=== PATIENT | female | born 1990 | race Caucasian/White ===

== ENCOUNTER 2020-05-23 11:42 | Emergency (ER) | payer OTHER, SELFPAY ==
--- NOTE | ~2020-05-23 | XR_ITS ---
EXAMINATION: XR foot LT min 3V DATE: 05/23/2020 12:00 INDICATION: Left foot injury and pain. TECHNIQUE: 4 views of left foot were obtained. COMPARISON: Left ankle radiographs 02/23/2010 FINDINGS: Bone alignment is normal. No fracture. There is mild osteoarthritis of first metatarsophala ngeal joint. There is an enthesophyte at plantar aspect of calcaneal tuberosity. IMPRESSION: 1. Mild osteoarthritis of first metatarsophalangeal joint. Reviewed, dictated and finalized at location A.
--- NOTE | 2020-05-23 11:50 | ED.LOWEXIN ---
HPI - Extremity Injury (Lower) General Chief Complaint: Extremity Injury, Lower Stated Complaint: lt foot injury Time Seen by Provider: 05/23/20 12:01 Source: patient and RN notes reviewed Mode of arrival: ambulatory Limitations: no limitations History of Present Illness HPI Narrative: 30-year-old female who presents to [facility] care with complaints of injury to her left lateral foot and ankle which occurred on May 15 when she fell down the steps. Patient states swelling and bruising have decreased to her left lateral foot and ankle but continues to have pain to the area.Patient is able to bear weight to her foot, denies any tingling or numbness to her foot with strong left pedal and post tibial pulses.Patient has minimal swelling to area lateral ankle area. MD complaint: foot injury (left) Onset (ago): day(s) () Injury: Left: ankle and foot Type of Injury: eversion Place: home Severity: moderate Context: fall Associated symptoms: swelling and able to partially bear weight Other symptoms: none Treatments prior to arrival: cold therapy and NSAIDS Related Data Home Medications Medication Instructions Recorded Confirmed drospirenone-ethinyl estradiol 1 tablet DAILY 05/23/20 05/23/20 sertraline 100 mg DAILY 05/23/20 05/23/20 Allergies Allergy/AdvReac Type Severity Reaction Status Date / Time No Known Allergies Allergy Mild Verified 03/25/13 21:29 Review of Systems Review of Systems: Narrative: CONSTITUTIONAL: Denies fever, chills, or sweats. EYES: Denies visual changes, redness, or discharge. ENT: Denies rhinorrhea, congestion, sore throat, or otalgia. CARDIOVASCULAR: Denies chest pain, palpitations, or edema. RESPIRATORY: Denies cough or dyspnea. GASTROINTESTINAL: Denies abdominal pain, nausea, vomiting, or diarrhea. GENITOURINARY: Denies dysuria or hematuria. SKIN: Denies rash or itching. MUSCULOSKELETAL: Denies back pain,positive for pain to her left lateral foot and ankle,or myalgia. NEUROLOGIC: Denies headache, numbness, or weakness. PSYCHIATRIC: positive history of anxiety or depression. All systems reviewed & are unremarkable except as noted in HPI and below PMFSH Past Medical History Medical History (Updated 05/24/20 @ 19:00 by Tiffany Kang NP) Depression Social History Social History (Updated 05/24/20 @ 18:56 by Tiffany Kang NP) Smoking status: Former smoker Tobacco type: cigarettes Smoking end date: 04/13/13 Living arrangements: with family Gender identity (if verbalized by the patient): Female Comments At time of signature, agree with nursing past medical, surgical, social history. There is no relevant family history pertinent to the presenting complaint Exam Narrative: Exam Narrative: GENERAL: Well-appearing, well-nourished, and in no acute distress. HEAD: Normocephalic, atraumatic. EYES: PERRLA and EOMI. ENT: Nares clear, no rhinorrhea or epistaxis. Mucous membranes moist. NECK: Supple. CHEST: Clear to auscultation. No respiratory distress. HEART: Regular rate and rhythm. No murmur heard. Normal peripheral pulses. ABDOMEN: Soft, nontender, nondistended, normal active bowel sounds. EXTREMITIES: Normal range of motion. Mild edema to lateral left ankle, pain with ambulation to left lateral ankle and foot, Circulation and sensation and mobility intact. SKIN: Warm, dry, no rash. NEURO: No focal deficits. Alert and oriented x3. Course Vital Signs Vital signs: Vital Signs Temperature 36.7 C 05/23/20 12:00 Respiratory Rate 05/23/20 12:00 Blood Pressure 145/86 H 05/23/20 12:00 Pulse Oximetry 99 05/23/20 12:00 Temperature 36.7 C 05/23/20 12:00 Respiratory Rate 05/23/20 12:00 Blood Pressure 145/86 H 05/23/20 12:00 Pulse Oximetry 99 05/23/20 12:00 MDM - Extremity Injury (Lower) Differential Diagnosis Differential diagnosis: Likely ankle sprain and strain, ankle fracture and other (sprain of foot, pain left foot,) Medical Records Attesta
[2020-05-23 12:00] VITALS: BP 145/86; RESP 20; TEMP 36.7; O2SAT 99
== END 2020-05-23 12:19 | disposition home or self-care (01) ==
PROVIDERS: Emergency Provider Registered Nurse
DX: S96.912A Strain of unspecified muscle and tendon at ankle and foot level, left foot, initial encounter (principal); W10.9XXA Fall (on) (from) unspecified stairs and steps, initial encounter; S93.402A Sprain of unspecified ligament of left ankle, initial encounter; Z87.891 Personal history of nicotine dependence; F32.9 Major depressive disorder, single episode, unspecified
CPT/HCPCS: 73630; 99203; G0463

== ENCOUNTER 2020-06-28 20:38 | Emergency (ER) | payer OTHER, SELFPAY ==
--- NOTE | ~2020-06-28 | XR_ITS ---
XR hand RT min 3V DATE: 06/28/2020 21:21 INDICATION: Smashed hand in window. Pain at third and fourth right digits TECHNIQUE: 3 views COMPARISON: None FINDINGS: No fracture or dislocation, periosteal reaction or bone destruction, radiopaque soft tissue foreign body or subcutaneous emphysema. Joint spaces are preserved. No erosive changes. IMPRESSION: Negative Reviewed, dictated and finalized at location A. IMPRESSION: Negative
--- NOTE | ~2020-06-28 | XR_ITS ---
XR hand LT min 3V DATE: 06/28/2020 21:21 INDICATION: Smashed both hands in window. Numbness and second left digit TECHNIQUE: 3 views of left hand COMPARISON: None FINDINGS: No fracture or dislocation, periosteal reaction or bone destruction. The joint spaces are p reserved. No erosive changes. No abnormal soft tissue calcifications or subcutaneous emphysema. IMPRESSION: Negative Reviewed, dictated and finalized at location A. IMPRESSION: Negative
[2020-06-28 20:43] VITALS: BP 143/88; PULSE 94; RESP 16; TEMP 36.6; O2SAT 100
--- NOTE | 2020-06-28 21:14 | ED.UPPEXIN ---
HPI - Extremity Injury (Upper) General Chief Complaint: Extremity Injury, Upper Stated Complaint: window crush injury to both hands Time Seen by Provider: 06/28/20 20:48 Source: patient Mode of arrival: ambulatory Limitations: no limitations History of Present Illness HPI narrative: This is a 30 year old female that presents to the ER for crush injury to the fingers. Reports she got her fingers caught in a storm window. Reports since she has had pain in the left 2nd finger and right 3rd and 4th fingers. Reports a superficial laceration to the left third finger. Reports she is up to date on tetanus. Denies decreased ROM or numbness. Related Data Home Medications Medication Instructions Recorded Confirmed drospirenone-ethinyl estradiol 1 tablet DAILY 05/23/20 05/23/20 sertraline 100 mg DAILY 05/23/20 05/23/20 Allergies Allergy/AdvReac Type Severity Reaction Status Date / Time No Known Allergies Allergy Mild Verified 03/25/13 21:29 Review of Systems Review of Systems: Narrative: CONSTITUTIONAL: Denies fever SKIN: Reports laceration MUSCULOSKELETAL: Reports joint pain, and myalgia. NEUROLOGIC: Denies numbness All systems reviewed & are unremarkable except as noted in HPI and below PMFSH Past Medical History Medical History (Updated 06/28/20 @ 22:08 by Lary Mckeon PA-C) Depression Social History Social History (Updated 05/24/20 @ 18:56 by Tiffany Kang NP) Smoking status: Former smoker Tobacco type: cigarettes Smoking end date: 04/13/13 Gender identity (if verbalized by the patient): Female Exam Narrative: Exam Narrative: GENERAL: Well-appearing, well-nourished, and in no acute distress. HEAD: Normocephalic, atraumatic. EYES: EOMI. EXTREMITIES: Normal range of motion. No edema or obvious deformity. 1cm superficial laceration to the left 2nd finger distal phalanx dorsal surface. Normal sensation SKIN: Warm, dry, no rash. NEURO: No focal deficits. Alert and oriented x3. PSYCH: Normal mood and affect Course Vital Signs Vital signs: Vital Signs Temperature 97.9 F 06/28/20 20:43 Pulse Rate 94 06/28/20 20:43 Respiratory Rate 16 06/28/20 20:43 Blood Pressure 143/88 H 06/28/20 20:43 Pulse Oximetry 100 06/28/20 20:43 Temperature 97.9 F 06/28/20 20:43 Pulse Rate 94 06/28/20 20:43 Respiratory Rate 16 06/28/20 20:43 Blood Pressure 143/88 H 06/28/20 20:43 Pulse Oximetry 100 06/28/20 20:43 MDM - Extremity Injury (Upper) MDM Narrative Medical decision making narrative: Patient presents to the ER for bilateral hand pain after an injury today. Patient is neurovascularly intact. Bilateral hand X-rays are without acute changes. Patient instructed to rest, ice, elevate and take OTC pain medication as needed. Patient also with superficial laceration. She is up-to-date on tetanus. Wound was cleansed and bandaged. She is to follow up with her PCP. She was given warnings to return to the ER Imaging Data Radiologist's impression: ITS Impressions Hand X-Ray 06/28/20 21:53 IMPRESSION: Negative Hand X-Ray 06/28/20 21:55 IMPRESSION: Negative Critical Care Time Critical Care Time Critical Care Time: No Discharge Plan Discharge Clinical Impression: Crushing injury of hand and fingers Qualifiers: Encounter type: initial encounter Laterality: unspecified laterality Qualified Code(s): S67.20XA - Crushing injury of unspecified hand, initial encounter Patient Disposition: Home, Self-Care Condition: Stable Instructions: Crush Injury (ED) Additional Instructions: Return to the emergency department if you experience fever, redness or swelling of your wound, abnormal drainage from your wound, numbness, your hand feels cold, or any other symptoms that are concerning to you. Rest. Ice the area. Apply antibiotic ointment daily. Do not soak the wound. Clean with mild soap and water daily. Tylenol or ibuprofen as needed for pain Follow-
[2020-06-28 22:31] VITALS: BP 137/77; PULSE 90; RESP 16; O2SAT 99
== END 2020-06-28 22:32 | disposition home or self-care (01) ==
PROVIDERS: Emergency Provider Emergency Medicine
DX: S67.191A Crushing injury of left index finger, initial encounter (principal); S67.193A Crushing injury of left middle finger, initial encounter; S67.195A Crushing injury of left ring finger, initial encounter; S67.190A Crushing injury of right index finger, initial encounter; S67.192A Crushing injury of right middle finger, initial encounter; S67.194A Crushing injury of right ring finger, initial encounter; S61.213A Laceration without foreign body of left middle finger without damage to nail, initial encounter; F32.9 Major depressive disorder, single episode, unspecified; Z87.891 Personal history of nicotine dependence; W23.0XXA Caught, crushed, jammed, or pinched between moving objects, initial encounter
CPT/HCPCS: 73130; 99284

== ENCOUNTER 2020-11-20 14:53 | Outpatient (CLI) | payer OTHER, SELFPAY | END 2020-11-20 14:54 | disposition home or self-care (01) | LOC: ANHSURGERY 15:00 | PROVIDERS: Visit Provider Obstetrics & Gynecology | DX: Z01.818 Encounter for other preprocedural examination (principal); N94.6 Dysmenorrhea, unspecified | CPT/HCPCS: 36415; 86850; 86900; 86901 ==

== ENCOUNTER 2020-11-24 01:22 | Outpatient (CLI) | payer OTHER, SELFPAY ==
[2020-11-24 19:22] LABS: SARS-CoV-2 RNA PCR Negative
== END 2020-11-24 01:23 | disposition home or self-care (01) ==
LOC: ANHCOVIDDT 01:22
PROVIDERS: Visit Provider Obstetrics & Gynecology
DX: Z01.812 Encounter for preprocedural laboratory examination (principal); Z20.822 Contact with and (suspected) exposure to COVID-19
CPT/HCPCS: C9803; U0003; U0005

== ENCOUNTER 2020-11-27 02:04 | Day surgery (SDC) | payer OTHER, SELFPAY ==
[2020-11-19 13:59] VITALS: BMI 41.1
--- NOTE | 2020-11-25 08:58 | PM.IMHP ---
H&P: HPI History of Present Illness Date/Time: 11/25/20 08:58 Chief Complaint: pain Narrative: Jyoti Rico is a 30 year old female is admitted for diagnostic laparoscopy secondary to pelvic pain dyspareunia. She has had negative STD testing and pain and discomfort risks and benefits were reviewed including the exclusive of , aspiration pneumonia, bleeding, transfusion, perforation injury to bowel, bladder, ureters, or other internal organs with need for laparotomy. She voiced good understanding. She had all questions answered. She received the [employer] handout entitled laparoscopy. She asked to proceed Review of Systems Review of Systems: All systems reviewed & are unremarkable except as noted in HPI and below PMFSH Past Medical History Medical History Depression Social History Social History Smoking status: Never smoker Tobacco type: cigarettes Smoking end date: 04/13/13 Gender identity (if verbalized by the patient): Female Spiritual care concerns: No Meds Home Medications and Allergies Home Medications Medication Instructions Recorded Confirmed Type drospirenone-ethinyl estradiol 1 tablet PO DAILY 05/23/20 11/19/20 History sertraline 100 mg PO DAILY 05/23/20 11/19/20 History bupropion HCl 150 mg PO DAILY 11/19/20 11/19/20 History trazodone 100 mg PO HS 11/19/20 11/19/20 History Allergies Allergy/AdvReac Type Severity Reaction Status Date / Time latex Allergy Difficulty Verified 11/19/20 13:57 Breathing adhesive AdvReac Redness of Verified 11/19/20 13:58 Skin Exam Const: General: no acute distress Neck: Neck: supple and no JVD Thyroid: thyroid normal Resp: Effort & Inspection: normal respiratory effort Auscultation: clear to auscultation bilaterally Cardio: Rate: regular rate Rhythm: regular rhythm GI: Inspection: non-distended GI Palp: Yes Soft to palpation, No Tenderness to palpation present (GI) and No Guarding due to palpation present (GI) Auscultation: normal bowel sounds : General: Yes bladder normal to palpation External Female Exam: normal external appearance Speculum Exam - Vagina: normal vaginal discharge and No vaginal bleeding Speculum Exam - Cervix: nontender Bimanual exam- vagina & uterus: bladder normal to palpation and No Cervical tenderness present OB/external & speculum: No vaginal bleeding Skin: General skin exam: no rashes or lesions noted Extrem: General: normal to inspection and no edema Psych: Mental Status: mental status grossly normal Affect: normal affect Assessment and Plan Additional Plan impression: Pelvic pain Plan: Diagnostic laparoscopy
[2020-11-27] VITALS (8 sets, daily range): BP systolic 106–144; BP diastolic 57–91; PULSE 78–103; RESP 16–20; TEMP 36–36.8; O2SAT 99–100
--- NOTE | 2020-11-27 06:41 | WPDHPUPDATE1 ---
History and Physical Update Update Date/Time: 11/27/20 06:41 History and Physical has been reviewed, including an updated exam of the patient. There are NO changes in the patient's condition. Risks, benefits, and alternatives have been discussed and questions answered. Patient agrees to proceed with procedure.
--- NOTE | 2020-11-27 09:39 | P.PNAN_ITS ---
Anes - Initial Pre Proc Eval Procedure: Operation Date: 11/27/20 11:30 Proposed Procedures p Diagnostic Laparoscopy - Kieran Delacruz MD Date/Time: 11/27/20 09:39 Surgeon: Kieran Delacruz MD Pre Op Diagnosis: Pelvic Pain, Dyspareunia, Irregular Bleeding Patient Data Age: 30 Gender: F Height: 5 ft 4 in Weight: 108.86 kg Allergies Allergy/AdvReac Type Severity Reaction Status Date / Time latex Allergy Difficulty Verified 11/19/20 13:57 Breathing adhesive AdvReac Redness of Verified 11/19/20 13:58 Skin Home Medications Medication Instructions Recorded Confirmed Type drospirenone-ethinyl estradiol 1 tablet PO DAILY 05/23/20 11/19/20 History sertraline 100 mg PO DAILY 05/23/20 11/19/20 History bupropion HCl 150 mg PO DAILY 11/19/20 11/19/20 History trazodone 100 mg PO HS 11/19/20 11/19/20 History hydrocodone-acetaminophen [[place]] 1 tablet PO Q4H PRN #20 tablet 11/27/20 Rx Patient hx anesthesia problems: none Family hx anesthesia problems: none PMFSH Past Medical History Medical History (Updated 11/27/20 @ 09:40 by Kieran Jurado MD) Depression Morbid obesity Social History Social History Smoking status: Never smoker Tobacco type: cigarettes Smoking end date: 04/13/13 Living arrangements: with family Gender identity (if verbalized by the patient): Female Spiritual care concerns: No Anes - Eval Final PreProcedure Day of Procedure 11/27/20 09:39 Patient weight: morbidly obese Heart: regular rate and rhythm Lungs: clear to auscultation Airway: Mallampati scale class II Neurological: alert and oriented Last oral intake: >/= 8 hours ASA classification: III Emergent: no Anesthetic plan: proceed Anesthesia type and monitoring: general ETT and standard monitoring Informed Consent: The patient's anesthetic plan and its attendant risks and benefits were discussed with the patient/family/POA. Questions were solicited and answers provided to the satisfaction of the patient/family/POA.
[2020-11-27] MEDS: ACETAMINOPHEN 500 MG TABLET 1000 MG PO (10:06)
[2020-11-27] MEDS: LACTATED RINGERS 1,000 ML 30 ML IV CONT (10:12)
[2020-11-27] MEDS: KETOROLAC 15 MG/ML VIAL (*BKC) IV PUSH (10:13)
--- NOTE | 2020-11-27 11:30 | P.OP_ITS ---
Procedure Note - Detailed Date of procedure: 11/27/20 Pre-op diagnosis: Pelvic Pain, Dyspareunia, Irregular Bleeding Surgeon: Kieran Delacruz MD Postop diagnosis: Pelvic pain/endometriosis/bilateral ovarian cysts/irregular bleeding Procedure: Laparoscopy. Destruction of endometriosis. Destruction bilateral ovarian cysts Anesthesia: General endotracheal Complications: None Findings: Mildly enlarged uterus. Normal appearing tubes bilaterally. Benign ovarian cysts bilaterally. Endometrial implants along each uterus sacral ligament. Normal-appearing appendix liver and gallbladder Description of procedure: The patient was prepped and draped in the normal sterile fashion and placed in the dorsal lithotomy position. Under excellent general trach anesthesia was pedicled placed in posterior fornix vagina. The anterior lip of the cervix grasped with a single tooth tenaculum at the Fuchs ca nnula inserted to be attached later for uterine manipulation. The bladder was emptied of clear urine. A weighted speculum was removed. The gloves were changed. An infraumbilical incision made in the Veress needle passed in the abdomen. The abdomen was filled with CO2 gas to 15 mmHg. The 5 mm trocar advanced under direct visualization assure no injury. The patient was placed in Trendelenburg and suprapubic incision made. 5 mm trocar advanced under direct visualization sure no injury. Proximally 15 cc of serosanguineous fluid was seen in the cul-de-sac and this was suction and irrigated away. Small endometrial implants and blister and powder form were seen bilaterally along each uterus sacral ligament. These were point cauterized at 35 w per 2nd. Multiple ovarian cysts consistent with polycystic ovaries were noted and these were drained by puncturing each individually about 10 on each side. The remainder of the pelvis appeared clear and photo documentation was undertaken. The appendix liver and gallbladder appeared within normal limits. The lower central was removed. Gastric removed from the abdomen. The upper side removed. The incisions closed with 4 Monocryl and glue. The patient was awakened. All sponge, needle, instrument counts were correct. There were no immediate complications.
[2020-11-27] MEDS: oxyCODONE HCL (*CRX) 5 MG TAB IR PO (12:42)
== END 2020-11-27 13:17 | disposition home or self-care (01) ==
PROVIDERS: Visit Provider Obstetrics & Gynecology
PROC: (CPT 49320; principal; 2020-11-27 11:30)
DX: R10.12 Left upper quadrant pain (principal); N80.3 Endometriosis of pelvic peritoneum; N94.10 Unspecified dyspareunia; F32.9 Major depressive disorder, single episode, unspecified; N92.1 Excessive and frequent menstruation with irregular cycle; E66.01 Morbid (severe) obesity due to excess calories; Z68.41 Body mass index [BMI] 40.0-44.9, adult; N83.202 Unspecified ovarian cyst, left side; N83.201 Unspecified ovarian cyst, right side
CPT/HCPCS: 58662; 36415; 86850; 86900; 86901; A9270; C9803; J0330; J1100; J1885; J2250; J2405; J2704; J3010; J7030; J7120; U0003; U0005

== ENCOUNTER 2021-03-11 09:23 | Outpatient (CLI) | payer OTHER, SELFPAY ==
[2021-03-11 09:49] LABS: Basophils Percent Auto 0.4 % (0.2-1.2); Eosinophils Absolute Auto 0.2 K/mm3 (0-0.3); Eosinophils Percent Auto 2.7 % (0-4.4); Hematocrit 42.6 % (37.0-47.0); Hemoglobin 14.1 g/dL (12.0-15.0); Immature Granulocyte Absolute 0.03 K/mm3 (0.00-0.031); Immature Granulocyte Percent A 0.4 % (0-0.5); Lymphocytes Absolute Auto 1.99 K/mm3 (0.9-3.2); Lymphocytes Percent Auto 24.1 % (18.3-44.2); Mean Corpuscular HGB Conc 33.1 g/dl (32-36); Mean Corpuscular Hemoglobin 30.4 pg (26-34); Mean Corpuscular Volume 91.8 fl (80-100); Mean Platelet Volume 10.5 fl (7.4-10.4); Monocytes Absolute Auto 0.5 K/mm3 (0.1-0.6); Monocytes Percent Auto 6.5 % (2.6-8.5); Neutrophils Absolute Auto 5.5 K/mm3 (1.3-6.7); Neutrophils Percent Auto 65.9 % (45.5-73.1); Platelet Count Result 275 k/mm3 (150-375); Red Blood Count 4.64 M/mm3 (4.2-5.4); Red Cell Distribution Width 13.3 % (11.5-14.5); White Blood Count 8.3 K/mm3 (4.5-10.0)
== END 2021-03-11 09:24 | disposition home or self-care (01) ==
PROVIDERS: Visit Provider Obstetrics & Gynecology
DX: Z01.818 Encounter for other preprocedural examination (principal); R10.2 Pelvic and perineal pain
CPT/HCPCS: 36415; 85025; 86850; 86900; 86901

== ENCOUNTER → 2021-03-16 01:50 | Outpatient (CLI) | payer OTHER, SELFPAY ==
[2021-03-16 19:24] LABS: SARS-CoV-2 RNA PCR Negative
== END ==
PROVIDERS: Visit Provider Obstetrics & Gynecology
DX: Z01.812 Encounter for preprocedural laboratory examination (principal); Z20.822 Contact with and (suspected) exposure to COVID-19
CPT/HCPCS: C9803; U0003; U0005

== ENCOUNTER 2021-03-19 00:53 | Day surgery (SDC) | payer OTHER, SELFPAY ==
[2021-03-08 10:12] VITALS: BMI 41.2
--- NOTE | 2021-03-17 09:31 | PM.IMHP ---
H&P: HPI History of Present Illness Date/Time: 03/17/21 09:31 This patient is a 30 year G0 who is admitted for robotic hysterectomy right salpingectomy and left salpingo-oophorectomy secondary to pain discomfort dysmenorrhea and dyspareunia endometriosis. She had negative STD testing she on multiple medications which have been helpful for pain. Risks and benefits of this were reviewed including but not exclusive of , aspiration pneumonia, bleeding, transfusion, perforation under to bowel, bladder, ureters, or other internal organs with need for open laparotomy. She realizes this will make her permanently infertile. She had all questions answered. She received the [employer] handout entitled hysterectomy as well as advanced she handout and had all questions answered. She asked to proceed Chief Complaint: pain/bleeding Review of Systems Review of Systems: All systems reviewed & are unremarkable except as noted in HPI and below PMFSH Past Medical History Medical History Depression Morbid obesity Social History Social History Years smoked: 2 Smoking status: Former smoker Tobacco type: cigarettes Smoking end date: 04/13/13 Gender identity (if verbalized by the patient): Female Spiritual care concerns: No Meds Home Medications and Allergies Home Medications Medication Instructions Recorded Confirmed Type drospirenone-ethinyl estradiol 1 tablet PO DAILY 05/23/20 03/08/21 History trazodone 100 mg PO HS PRN 11/19/20 03/08/21 History cetirizine [Zyrtec] 10 mg PO DAILY 03/08/21 03/08/21 History Allergies Allergy/AdvReac Type Severity Reaction Status Date / Time latex Allergy Difficulty Verified 03/08/21 10:16 Breathing adhesive AdvReac Redness of Verified 03/08/21 10:16 Skin Exam Const: General: no acute distress Eyes: General: appearance normal, both eyes and all related structures Neck: Neck: supple and no JVD Thyroid: thyroid normal Resp: Effort & Inspection: normal respiratory effort Auscultation: clear to auscultation bilaterally Cardio: Rate: regular rate Rhythm: regular rhythm GI: Inspection: non-distended GI Palp: Yes Soft to palpation, No Tenderness to palpation present (GI) and No Guarding due to palpation present (GI) Auscultation: normal bowel sounds : External Female Exam: normal external appearance Speculum Exam - Vagina: normal appearance of the vagina Speculum Exam - Cervix: normal appearance of the cervix Bimanual exam- vagina & uterus: Cervical tenderness present, enlarged and Uterine tenderness Bimanual Exam- Adnexa, other: tender on the left Skin: General skin exam: no rashes or lesions noted Extrem: General: normal to inspection and no edema Psych: Mental Status: mental status grossly normal Affect: normal affect Assessment and Plan Additional Plan impression: Pelvic pain irregular bleeding refractory to medical therapy/dyspareunia /dysmenorrhea Plan: Robotic total vaginal hysterectomy bilateral salpingectomies with left oophorectomy
--- NOTE | 2021-03-18 14:44 | WPDANESEPPF ---
Anes - Initial Pre Proc Eval Procedure: Operation Date: 03/19/21 07:30 Proposed Procedures p Robotic Assisted Total Vaginal Hysterectomy with Bilateral Salpingectomy, Possible Left Oophorectomy - Kieran Delacruz MD Date/Time: 03/18/21 14:44 Surgeon: Kieran Delacruz MD Pre Op Diagnosis: pelvic pain, dysmenorrhea,endometriosis,dyspurenia Patient Data Age: 31 Gender: F Height: 1.63 m Weight: 109 kg Allergies Allergy/AdvReac Type Severity Reaction Status Date / Time latex Allergy Difficulty Verified 03/19/21 06:36 Breathing adhesive AdvReac Redness of Verified 03/19/21 06:36 Skin Home Medications Medication Instructions Recorded Confirmed Type drospirenone-ethinyl estradiol 1 tablet PO DAILY 05/23/20 03/08/21 History trazodone 100 mg PO HS PRN 11/19/20 03/08/21 History cetirizine [Zyrtec] 10 mg PO DAILY 03/08/21 03/08/21 History hydrocodone-acetaminophen 1 tablet PO Q4H PRN #30 tablet 03/19/21 Rx Patient hx anesthesia problems: none Family hx anesthesia problems: none PMFSH Past Medical History Medical History (Updated 03/19/21 @ 06:03 by Kieran Delacruz MD) Anxiety Depression Endometriosis Morbid obesity PCOS (polycystic ovarian syndrome) Social History Social History Years smoked: 2 Smoking status: Former smoker Tobacco type: cigarettes Smoking end date: 04/13/13 Gender identity (if verbalized by the patient): Female Spiritual care concerns: No Anes - Eval Final PreProcedure Day of Procedure 03/18/21 14:44 Patient weight: morbidly obese Heart: regular rate and rhythm Lungs: clear to auscultation and normal air movement Airway: Mallampati scale class II Neurological: alert and oriented Last oral intake: >/= 8 hours ASA classification: III Emergent: no Anesthetic plan: proceed Anesthesia type and monitoring: general ETT and standard monitoring Informed Consent: The patient's anesthetic plan and its attendant risks and benefits were discussed with the patient/family/POA. Questions were solicited and answers provided to the satisfaction of the patient/family/POA.
[2021-03-19] VITALS (9 sets, daily range): BP systolic 106–141; BP diastolic 69–96; PULSE 75–100; RESP 16–20; TEMP 36.5–37.2; O2SAT 95–100
--- NOTE | 2021-03-19 06:02 | WPDHPUPDATE1 ---
History and Physical Update Update Date/Time: 03/19/21 06:02 History and Physical has been reviewed, including an updated exam of the patient. There are NO changes in the patient's condition. Risks, benefits, and alternatives have been discussed and questions answered. Patient agrees to proceed with procedure.
[2021-03-19] MEDS: ACETAMINOPHEN 500 MG TABLET 1000 MG PO (06:18)
[2021-03-19] MEDS: KETOROLAC 15 MG/ML VIAL (*BKC) IV PUSH (06:19)
[2021-03-19] MEDS: LACTATED RINGERS 1,000 ML 30 ML IV CONT ×2 (06:28→08:46)
--- NOTE | 2021-03-19 08:38 | P.OP_ITS ---
Procedure Note - Detailed Date of procedure: 03/19/21 Pre-op diagnosis: pelvic pain, dysmenorrhea,endometriosis,dyspurenia Surgeon: Kieran Delacruz MD Postop diagnosis: Pelvic pain who has dysmenorrhea/endometriosis/dyspareunia/left ovarian cyst Procedure: Robotic total vaginal hysterectomy bilateral salpingectomy and left oophorectomy EBL: 25cc Findings: Enlarged uterus with large left ovarian cyst Anesthesia: General tracheal Complications: None Description of procedure: Patient was prepped and draped in the normal sterile fashion placed in the dorsal lithotomy position. Under excellent general trach anesthesia weighted speculum placed in posterior fornix of vagina. Anterior lip of the cervix was grasped with single-tooth tenaculum and the uterus sounded to 8cm. Serial dilatation with fragmented dilators performed followed by passage of the 8. OBI and 2. And half cold cup. Next the 16 Greenlandic catheter was placed in the bladder used as clear fluid drained. The remainder the instruments removed and the gloves were changed. Supraumbilical incision made and Veress needle passed in the. The abdomen filled with CO2 gas to 15 of mercury. The 8mm trocar advanced in the abdomen in the downside visualized. No injury seen. Patient placed in Trendelenburg and right left lateral quadrant incisions. Eight trocars were advanced abdomen under direct visualization assuring no injury. A right upper quadrant incision made 8mm trocar advanced under direct visualization assuring injury the robot was docked. Attention was turned to the procedure. The left tube round ligament was grasped, burned, cut and anteriorly a bladder flap was formed by sharply dissecting the the bladder away and reflecting it caudally to the opposite round ligament which was clamped, burned, cut. The left infundibulopelvic structure was skeletonized to remove the left ovary and tube this was serially clamped, burned, cut brought to the level of previously cut round ligament. The right fallopian tube was sharply dissected away from the ovary and tube to be taken with the specimen. Next the left broad and cardinal ligaments were serially skeletonized. These were clamped, burned, cut and brought down the lateral edge of the uterus to the uterine vessels. The uterine vessels were noted to be large and tortuous. These were serially clamped, burned, cut. Next the cardinal and broad ligaments on the right were serially skeletonized. These were clamped, burned, cut and brought to the level of the uterine vessels. The uterine vessels were serially clamped, burned, cut. The uterus blanched. A colpotomy incision was made in the cervix uterus left ovary and tube and right tube were removed through the vagina. Blood loss estimated at25cc. The vagina closed with continuous running 0V lock from lateral edge to lateral edge and back to the midline. Irrigation undertaken until clear and all pedicles appeared hemostatic. The robot was undocked. The gas removed from the abdomen. The incisions closed with 4 Monocryl glue. All sponge, needle, instrument counts were correct. There were no immediate complications noted
[2021-03-19] MEDS: fentaNYL CITRATE INJ (*CRX) 100 MCG/2 ML VIAL 25 MCG IV PUSH ×4 (08:55→09:39)
--- NOTE | 2021-03-19 10:05 | OBPPTRN ---
Patient transferred to post room # 289 via Bed. Support person present. Oriented to unit, room, information board, rooming in, admission packet and security measures. Patient verbalizes understanding.
[2021-03-19] MEDS: MORPHINE SULFATE (*CRX) 4 MG/ML INJ IV PUSH (10:26)
[2021-03-19] MEDS: SIMETHICONE 80 MG TAB.CHEW PO (10:26)
[2021-03-19] MEDS: DOCUSATE SODIUM 100 MG CAPSULE PO ×2 (10:26→18:28)
[2021-03-19] MEDS: DEXTROSE 5%/LACTATED RINGERS 1,000 ML 125 ML IV CONT (10:28)
[2021-03-19] MEDS: ENOXAPARIN 40 MG/0.4 ML SYRINGE SUB-Q (10:28)
[2021-03-19] MEDS: KETOROLAC 30 MG/ML VIAL (*BKC) IV PUSH (12:44)
[2021-03-19] MEDS: HYDROcodone/acetaminophen (*CRX) 5-325 MG TABLET 1 TAB PO (15:44)
[2021-03-19] MEDS: HYDROcodone/acetaminophen (*CRX) 10-325 MG TABLET 1 TAB PO (18:28)
[2021-03-19] MEDS: IBUPROFEN 600 MG TABLET PO (18:28)
[2021-03-20] VITALS: BP 120/77; PULSE 79; RESP 16; TEMP 36.3; O2SAT 100
[2021-03-20] MEDS: HYDROcodone/acetaminophen (*CRX) 10-325 MG TABLET 1 TAB PO ×2 (02:47→08:04)
[2021-03-20] MEDS: IBUPROFEN 600 MG TABLET PO ×2 (02:47→09:40)
[2021-03-20 03:00] VITALS: BP 120/77; PULSE 79; RESP 16; TEMP 36.4; O2SAT 100
[2021-03-20 05:53] LABS: Basophils Absolute Auto 0.1 K/mm3 (0.0-0.1); Basophils Percent Auto 0.4 % (0.2-1.2); Eosinophils Percent Auto 0.3 % (0-4.4); Hematocrit 40.2 % (37.0-47.0); Hemoglobin 12.9 g/dL (12.0-15.0); Immature Granulocyte Absolute 0.04 K/mm3 (0.00-0.031); Immature Granulocyte Percent A 0.3 % (0-0.5); Lymphocytes Absolute Auto 2.66 K/mm3 (0.9-3.2); Lymphocytes Percent Auto 20.3 % (18.3-44.2); Mean Corpuscular HGB Conc 32.1 g/dl (32-36); Mean Corpuscular Hemoglobin 29.8 pg (26-34); Mean Corpuscular Volume 92.8 fl (80-100); Mean Platelet Volume 11.3 fl (7.4-10.4); Monocytes Absolute Auto 0.8 K/mm3 (0.1-0.6); Monocytes Percent Auto 5.7 % (2.6-8.5); Neutrophils Absolute Auto 9.6 K/mm3 (1.3-6.7); Platelet Count Result 269 k/mm3 (150-375); Red Blood Count 4.33 M/mm3 (4.2-5.4); Red Cell Distribution Width 13.1 % (11.5-14.5); White Blood Count 13.1 K/mm3 (4.5-10.0)
--- NOTE | 2021-03-20 07:16 | PM.OBPNVD ---
OB - PN: Subj Subjective Date/time seen: 03/20/21 07:16 Patient comments: no complaints and pain well controlled OB - PN: Obj Data Labs CBC & Chem 7: 03/20/21 02:54 Labs: Laboratory Results - last 24 hr 03/20/21 02:54 WBC 13.1 H RBC 4.33 Hgb 12.9 Hct 40.2 MCV 92.8 MCH 29.8 MCHC 32.1 RDW 13.1 Plt Count 269 MPV 11.3 H Immature Gran % (Auto) 0.3 Neut % (Auto) 73.0 Lymph % (Auto) 20.3 [place] % (Auto) 5.7 Eos % (Auto) 0.3 Baso % (Auto) 0.4 Lymph # (Auto) 2.66 [place] # (Auto) 0.8 H Eos # (Auto) 0.0 Baso # (Auto) 0.1 Abs Immat Gran (auto) 0.04 H Absolute Neuts (auto) 9.6 H Absolute Nucleated RBC 0.0 Nucleated RBC % 0.0 OB - PN A/P Plan day: 1 Plan: discharge home and follow up 6 weeks (2 weeks) Time Spent With Patient Time: Total time spent is greater than 50% in coordination of care (as documented) at patient's floor/unit and/or counseling patient: Time with patient: less than 15 minutes Review of Systems Review of Systems: All systems reviewed & are unremarkable except as noted in HPI and below Exam Const: General: no acute distress Eyes: General: appearance normal, both eyes and all related structures Neck: Neck: supple and no JVD Thyroid: thyroid normal Resp: Effort & Inspection: normal respiratory effort Auscultation: clear to auscultation bilaterally Cardio: Rate: regular rate Rhythm: regular rhythm GI: Inspection: normal to inspection and incision (all cdi) : General: Yes bladder normal to palpation External Female Exam: normal external appearance Speculum Exam - Vagina: normal vaginal discharge and No vaginal bleeding Speculum Exam - Cervix: nontender Bimanual exam- vagina & uterus: bladder normal to palpation and No Cervical tenderness present OB/external & speculum: No vaginal bleeding Skin: General skin exam: no rashes or lesions noted Extrem: General: normal to inspection and no edema Psych: Mental Status: mental status grossly normal Affect: normal affect
--- NOTE | 2021-03-20 07:17 | PM.DS ---
DS: Admitting Diagnosis Admitting Diagnosis Admitting Diagnosis: Pain/bleeding / left ovarian cyst DS: Summary Hospital Course Hospital Course: patient underwent robotic total vaginal hysterectomy right salpingectomy and left salpingo-oophorectomy. Procedure was unremarkable. Her hospital course was unremarkable. She remained afebrile. She was up, voiding without difficulty, ambulating, and generally without complaints. Time Spent with Patient Time attestation: Total time spent providing and/or coordinating discharge services: Exam Const: General: no acute distress Eyes: General: appearance normal, both eyes and all related structures Neck: Neck: supple and no JVD Thyroid: thyroid normal Resp: Effort & Inspection: normal respiratory effort Auscultation: clear to auscultation bilaterally Cardio: Rate: regular rate Rhythm: regular rhythm GI: Inspection: non-distended GI Palp: Yes Soft to palpation, No Tenderness to palpation present (GI) and No Guarding due to palpation present (GI) Auscultation: normal bowel sounds : General: Yes bladder normal to palpation External Female Exam: normal external appearance Speculum Exam - Vagina: normal vaginal discharge and No vaginal bleeding Speculum Exam - Cervix: nontender Bimanual exam- vagina & uterus: bladder normal to palpation and No Cervical tenderness present OB/external & speculum: No vaginal bleeding Skin: General skin exam: no rashes or lesions noted Extrem: General: normal to inspection and no edema Psych: Mental Status: mental status grossly normal Affect: normal affect DS: Data Data Completed and Pending Pending studies at discharge: Pending at discharge 03/19/21 08:16 Surgical [PTH] Routine Labs on day of discharge: Labs from last 24 hours 03/20/21 02:54 WBC 13.1 H RBC 4.33 Hgb 12.9 Hct 40.2 MCV 92.8 MCH 29.8 MCHC 32.1 RDW 13.1 Plt Count 269 MPV 11.3 H Immature Gran % (Auto) 0.3 Neut % (Auto) 73.0 Lymph % (Auto) 20.3 [place] % (Auto) 5.7 Eos % (Auto) 0.3 Baso % (Auto) 0.4 Lymph # (Auto) 2.66 [place] # (Auto) 0.8 H Eos # (Auto) 0.0 Baso # (Auto) 0.1 Abs Immat Gran (auto) 0.04 H Absolute Neuts (auto) 9.6 H Absolute Nucleated RBC 0.0 Nucleated RBC % 0.0 Discharge Plan Discharge Patient Disposition: Home, Self-Care Stand Alone Forms: General Discharge Instructions Follow-up/Referrals: Kieran Delacruz MD [Physician] - Discharge Medications: New hydrocodone-acetaminophen 5-325 mg tablet 1 tablet PO Q4H PRN (Reason: pain) Qty: 30 RF: 0 No Action drospirenone-ethinyl estradiol 3-0.03 mg tablet 1 tablet PO DAILY RF: 0 trazodone 100 mg tablet 100 mg PO HS PRN (Reason: Insomnia) RF: 0 Zyrtec 10 mg Capsule 10 mg PO DAILY RF: 0
[2021-03-20] MEDS: ENOXAPARIN 40 MG/0.4 ML SYRINGE SUB-Q (09:28)
[2021-03-20] MEDS: DOCUSATE SODIUM 100 MG CAPSULE PO (09:28)
[2021-03-20 09:57] VITALS: BP 146/96; PULSE 79; RESP 16; TEMP 36.8; O2SAT 99
--- NOTE | 2021-03-20 10:46 | P.PNAN_ITS ---
Anes - Prog Note Post-Op Date/Time: 03/20/21 10:46 Cardiovascular status: normal Respiratory status: normal Airway patency: baseline Mental status: baseline Post-Op hydration status: normal Vital Signs: Last Vital Signs Temp 36.4 C L 03/20/21 03:00 Pulse 79 03/20/21 03:00 Resp 16 03/20/21 03:00 BP 120/77 03/20/21 03:00 Pulse Ox 100 03/20/21 03:00 Pain Score (VAS): 0 I/O: Intake & Output 03/19/21 03/20/21 03/20/21 23:59 07:59 15:59 Intake Total 1320 Output Total 750 Balance 570 Laboratory Tests 03/20/21 02:54 03/20/21 02:54 WBC 13.1 H RBC 4.33 Hgb 12.9 Hct 40.2 MCV 92.8 MCH 29.8 MCHC 32.1 RDW 13.1 Plt Count 269 MPV 11.3 H Immature Gran % (Auto) 0.3 Neut % (Auto) 73.0 Lymph % (Auto) 20.3 [place] % (Auto) 5.7 Eos % (Auto) 0.3 Baso % (Auto) 0.4 Lymph # (Auto) 2.66 [place] # (Auto) 0.8 H Eos # (Auto) 0.0 Baso # (Auto) 0.1 Abs Immat Gran (auto) 0.04 H Absolute Neuts (auto) 9.6 H Absolute Nucleated RBC 0.0 Nucleated RBC % 0.0 Post-procedural complaints: none Patient Feedback: Patient satisfied with anesthetic care.
[2021-03-20 10:51] VITALS: BP 133/92
== END 2021-03-20 10:55 | disposition home or self-care (01) ==
LOC: ANHSURGERY 05:49 → ANHOB2 10:00
PROVIDERS: Visit Provider Obstetrics & Gynecology
PROC: (CPT 58552; principal; 2021-03-19 07:30)
DX: R10.2 Pelvic and perineal pain (principal); N83.02 Follicular cyst of left ovary; N94.6 Dysmenorrhea, unspecified; N94.10 Unspecified dyspareunia; F41.8 Other specified anxiety disorders; E66.01 Morbid (severe) obesity due to excess calories; Z68.41 Body mass index [BMI] 40.0-44.9, adult
CPT/HCPCS: 58552; S2900; 36415; 85025; 86850; 86900; 86901; 88307; 99199; A9270; C9803; J1100; J1170; J1650; J1885; J2250; J2270; J2405; J2704; J2710; J3010; J7030; J7120; J7121; U0003; U0005

== ENCOUNTER 2021-10-19 15:32 | Outpatient (CLI) | payer OTHER, SELFPAY | END 2021-10-19 15:33 | disposition home or self-care (01) | LOC: ANHSURGERY 15:36 | PROVIDERS: Visit Provider Obstetrics & Gynecology | DX: Z01.812 Encounter for preprocedural laboratory examination (principal); R10.2 Pelvic and perineal pain | CPT/HCPCS: 36415; 86850; 86900; 86901 ==

== ENCOUNTER 2021-10-22 01:38 | Day surgery (SDC) | payer OTHER, SELFPAY ==
[2021-10-18 08:24] VITALS: BMI 39.1
--- NOTE | 2021-10-18 08:34 | PC.NURSE ---
Report to the Outpatient Waiting Room, entrance under the green pavilion located off [facility], at time 11:15 on date 10/22/21. OR Time: 1:15. - You and your visitor will be asked a series of questions to screen for COVID 19 for your protection. - A mask is required within the hospital. - Only one visitor is allowed at this time. Patient visitors will be guided where to wait when not with patient. Preoperative COVID Testing Requirements: EMAIL CARD TO [email or web address] No COVID Test needed if: (proof is required; if not received patient will have Rapid Test prior to entry) - Patient has received COVID Vaccine at least 14 days prior to procedure date or - Patient has positive COVID test result within last 90 days of surgery date. COVID Test needed if above criteria is not met If not COVID vaccinated a COVID test must be conducted within 72 hours of surgery and patient is asked to isolate self from time of testing until procedure. You will go to the [employer] [facility] Testing Site for your COVID testing. The [employer] [facility] is located at the corner of [address] from [facility]. You will only be called if COVID results are positive and your surgeon may reschedule your elective surgery date. Patients may have clear liquids (water, carbonated beverages, clear teas, apple juice) until 3 hours prior to surgery with a maximum of 20 ounces. - No food from midnight until time of surgery - Infants may have breast milk until 4 hours before surgery, infant formula 6 hours prior to surgery. - Children will be allowed to drink immediately following surgery. If applicable, please bring a bottle or sippy cup to assist with drinking. Juice, water, soda, and popsicles are readily available. For infants on formula, please bring formula the day of surgery. Pacifiers are allowed. Take the following medications with a SIP of water the morning of surgery: N/A Medications to discontinue per physician: N/A Date to take last dose: N/A Please no make-up, nail faroese, hairspray, perfume, deodorant, or body powder the day of surgery. No jewelry (including any body piercings) or valuables the day of surgery, leave them at home. Please take a shower or bath the night before, or the morning of, surgery with an antibacterial soap. Wear comfortable, loose fitting clothing. Children are encouraged to wear pajamas. - Jewelry must be removed prior to entering the operating room. Rings and piercings that are not removed may be cut off. - The hospital will not accept responsibility for valuables. - Please leave all valuables, including medications, at home the day of surgery. If you are going home after surgery, a licensed delivery route driver must drive you home. - NO public transportation without another adult. - We recommend that an adult stay with you for 24 hours following discharge. - We also recommend that you do not drive, make important decision, drink alcoholic beverages, or take any drugs that were not prescribed by your health care provider for at least 24 hours after your discharge time. For Pediatric surgeries, we recommend two adults accompany the child home (only one inside the building at this time). Follow any additional instructions given to you from your surgeon. Telephone instructions given to SARATH DANIELSON and asked if any additional questions and then verbalized understanding. Patient advised to call surgeon office or pre surgery nurse liaison [phone] if any additional questions.
--- NOTE | 2021-10-19 12:57 | P.HP_ITS ---
H&P: HPI History of Present Illness Date/Time: 10/19/21 12:57 30-year-old status post hysterectomy and left salpingo-oophorectomy admitted for diagnostic laparoscopy secondary to pelvic pain. As noted she has had previous hysterectomy. She has had pain discomfort and dyspareunia. Ultrasound showed just some small cyst on the right ovary and no free fluid. Her pain has been unrelenting and she thus opts for laparoscopy. Risks and benefits including but not exclusive of , aspiration pneumonia, bleeding, transfusion, perforation injury to bowel, bladder, ureters, or other internal organs with need for open laparotomy reviewed. She received the [facility] handout entitled laparoscopy. She had all questions answered and asked to proceed Chief Complaint: Pelvic pain in a patient status post hysterectomy and left salpingo-oophorectomy Review of Systems Review of Systems: All systems reviewed & are unremarkable except as noted in HPI and below PMFSH Past Medical History Medical History Anxiety Depression Endometriosis Morbid obesity PCOS (polycystic ovarian syndrome) Social History Social History Smoking packs per day: 1 Smoking cigarettes per day: 20.0 Years smoked: 7 Smoking pack-years: 7.00 Smoking status: Former smoker Tobacco type: cigarettes Smoking end date: 11/13/12 Alcohol intake: current Drinks per week: 1 Substance use: never Substance use type: does not use Gender identity (if verbalized by the patient): Female Spiritual care concerns: No Meds Home Medications and Allergies Home Medications Medication Instructions Recorded Confirmed Type sertraline 100 mg PO HS 10/18/21 10/18/21 History Allergies Allergy/AdvReac Type Severity Reaction Status Date / Time latex Allergy Difficulty Verified 10/18/21 08:23 Breathing adhesive AdvReac Redness of Verified 10/18/21 08:23 Skin Exam Const: General: no acute distress Eyes: General: appearance normal, both eyes and all related structures Neck: Neck: supple and no JVD Thyroid: thyroid normal Resp: Effort & Inspection: normal respiratory effort Auscultation: clear to auscultation bilaterally Cardio: Rate: regular rate Rhythm: regular rhythm GI: Inspection: non-distended GI Palp: Yes Soft to palpation, No Tenderness to palpation present (GI) and No Guarding due to palpation present (GI) Auscultation: normal bowel sounds : External Female Exam: normal external appearance Speculum Exam - Vagina: normal appearance of the vagina Speculum Exam - Cervix: Cervix absent Bimanual exam- vagina & uterus: uterus absent Bimanual Exam- Adnexa, other: tender Skin: General skin exam: no rashes or lesions noted Extrem: General: normal to inspection and no edema Psych: Mental Status: mental status grossly normal Affect: normal affect Assessment and Plan Additional Plan Impression: Pelvic pain in a patient status post hysterectomy and left salpingo- oophorectomy. Plans diagnostic laparoscopy risks and benefits reviewed
[2021-10-22] VITALS (8 sets, daily range): BP systolic 118–150; BP diastolic 63–90; PULSE 74–86; RESP 16–20; TEMP 36.2–36.6; O2SAT 96–100
--- NOTE | 2021-10-22 07:14 | WPDHPUPDATE1 ---
History and Physical Update Update Date/Time: 10/22/21 07:14 History and Physical has been reviewed, including an updated exam of the patient. There are NO changes in the patient's condition. Risks, benefits, and alternatives have been discussed and questions answered. Patient agrees to proceed with procedure.
[2021-10-22] MEDS: ACETAMINOPHEN 500 MG TABLET 1000 MG PO (11:47)
[2021-10-22] MEDS: LACTATED RINGERS 1,000 ML 30 ML IV CONT ×2 (11:50→14:56)
--- NOTE | 2021-10-22 11:53 | WPDANESEPPF ---
Anes - Initial Pre Proc Eval Procedure: Operation Date: 10/22/21 13:15 Proposed Procedures p Diagnostic Laparoscopy - Kieran Delacruz MD Date/Time: 10/22/21 11:53 Surgeon: Kieran Delacruz MD Pre Op Diagnosis: Pelvic Pain Patient Data Age: 31 Gender: F Height: 1.63 m Weight: 103.4 kg Allergies Allergy/AdvReac Type Severity Reaction Status Date / Time latex Allergy Severe Difficulty Verified 10/22/21 11:39 Breathing/Skin irritation adhesive AdvReac Mild Redness of Verified 10/22/21 11:39 Skin Home Medications Medication Instructions Recorded Confirmed Type sertraline 100 mg PO HS 10/18/21 10/22/21 History hydrocodone-acetaminophen 1 tablet PO Q4H PRN #30 tablet 10/22/21 Rx Patient hx anesthesia problems: none Family hx anesthesia problems: none Results Review: All pre-operative results and documents have been reviewed as part of the pre-operative evaluation. [facility] Past Medical History Medical History Anxiety Depression Endometriosis Morbid obesity PCOS (polycystic ovarian syndrome) Social History Social History Smoking packs per day: 1 Smoking cigarettes per day: 20.0 Years smoked: 7 Smoking pack-years: 7.00 Smoking status: Former smoker Tobacco type: cigarettes Smoking end date: 11/13/12 Alcohol intake: current Drinks per week: 1 Substance use: never Substance use type: does not use Living arrangements: with family Gender identity (if verbalized by the patient): Female Spiritual care concerns: No Anes - Eval Final PreProcedure Day of Procedure 10/22/21 11:53 Patient weight: morbidly obese Heart: regular rate and rhythm Lungs: clear to auscultation and normal air movement Airway: Mallampati scale class II Neurological: alert and oriented Last oral intake: >/= 8 hours ASA classification: III Emergent: no Anesthetic plan: proceed Anesthesia type and monitoring: general ETT Results Review: All pre-operative results and documents have been reviewed as part of the pre-operative evaluation. Informed Consent: The patient's anesthetic plan and its attendant risks and benefits were discussed with the patient/family/POA. Questions were solicited and answers provided to the satisfaction of the patient/family/POA.
[2021-10-22] MEDS: KETOROLAC 15 MG/ML VIAL (*BKC) IV PUSH (12:05)
--- NOTE | 2021-10-22 14:20 | P.OP_ITS ---
Procedure Note - Detailed Date of Procedure 10/22/21 Pre-op Diagnosis Pelvic Pain Post-op Diagnosis other (Pelvic adhesions) Procedure Performed Laparoscopic lysis of adhesions Surgeon Kieran Delacruz MD Anesthesia general Indications Story 11-year-old status post hysterectomy left salpingo-oophorectomy plane severe pelvic Findings Absent left ovary and tube. Absent uterus. Normal-appearing ovary multiple adhesions to cuff and along left lateral sidewall Description of Procedure The patient is prepped draped normal sterile fashion placed in dorsal lithotomy position. Under excellent general trach anesthesia weighted speculum placed posterior fornix of the vagina. A sponge stick was placed in the bladder drained clear urine. Weighted speculum was removed gloves were changed. A supraumbilical incision made the Veress needle passed in the abdomen. Abdomen filled with CO2 gas [id number]. The 5mm trocar advanced under direct visualization assuring injury. Patient placed in Trendelenburg and a suprapubic incision 5mm trocar advanced under direct visualization assuring multiple adhesions were seen liver edge of the colon to the lateral sidewall. Using sharp dissection these were relieved and movement of the sponge stick to similar simulate intercourse showed free movement. Vigorous irrigation was undertaken until clear. No other abnormalities were seen the appendix appeared within limi ts. The lower site. The gas removed. The upper site removed the incisions closed with 4 Monocryl glue. Sponge stick removed from vagina and the patient went to recovery in satisfactory condition all sponge, needle, instrument counts were correct. There were no immediate complications Estimated Blood Loss 5 Drains No Packing No Pathology none sent Complications No immediate complications Condition stable Disposition PACU
[2021-10-22] MEDS: fentaNYL CITRATE INJ (*CRX) 100 MCG/2 ML VIAL 25 MCG IV PUSH ×2 (15:12→15:15)
== END 2021-10-22 16:20 | disposition home or self-care (01) ==
PROVIDERS: Visit Provider Obstetrics & Gynecology
PROC: (CPT 49320; principal; 2021-10-22 13:15)
DX: R10.2 Pelvic and perineal pain (principal); N73.6 Female pelvic peritoneal adhesions (postinfective); E28.2 Polycystic ovarian syndrome; F41.8 Other specified anxiety disorders; Z87.891 Personal history of nicotine dependence; E66.01 Morbid (severe) obesity due to excess calories; Z68.38 Body mass index [BMI] 38.0-38.9, adult
CPT/HCPCS: 58660; 36415; 86850; 86900; 86901; A9270; J0330; J1100; J1885; J2250; J2405; J2704; J3010; J7030; J7120

== ENCOUNTER 2022-01-19 14:47 | Emergency (ER) | payer OTHER, SELFPAY ==
--- NOTE | 2022-01-19 14:50 | ED.URI ---
HPI - URI/Sore Throat General Chief Complaint: Upper Respiratory Infection Stated Complaint: SORE THROAT/RUNNY NOSE/SINUS PRESSURE/COUGH Time Seen by Provider: 01/19/22 14:50 Source: patient Mode of arrival: ambulatory Limitations: no limitations History of Present Illness HPI Narrative: Ms. Rico is a 32-year-old female patient presenting to the clinic today with complaints of sore throat, cough, runny nose x2-3 days. She reports she had a low-grade temp last night however nothing today. Denies chills. Is requesting Covid testing for work so she can return tomorrow. Also has quite a bit of congestion. She denies any known exposure to anybody with Covid. Has been vaccinated against Covid. MD elicited complaint: sore throat and nasal congestion Related Data Home Medications Medication Instructions Recorded Confirmed sertraline 100 mg PO HS 10/18/21 10/22/21 bupropion HCl mg PO 01/19/22 hydroxyzine HCl 01/19/22 lamotrigine 01/19/22 trazodone 01/19/22 Allergies Allergy/AdvReac Type Severity Reaction Status Date / Time latex Allergy Severe Difficulty Verified 10/22/21 11:39 Breathing/Skin irritation adhesive AdvReac Mild Redness of Verified 10/22/21 11:39 Skin Review of Systems Review of Systems: Pertinent positives per HPI. Patient denies any fever, chills, rash, headache, visual changes, dizziness, shortness of breath, chest pain, palpitations, nausea, vomiting, diarrhea, constipation, abdominal pain, or any urinary issues. [facility] Past Medical History Medical History Anxiety Depression Endometriosis Morbid obesity PCOS (polycystic ovarian syndrome) Social History Social History Smoking packs per day: 1 Smoking cigarettes per day: 20.0 Years smoked: 7 Smoking pack-years: 7.00 Smoking status: Former smoker Tobacco type: cigarettes Smoking end date: 11/13/12 Alcohol intake: current Drinks per week: 1 Substance use: never Substance use type: does not use Gender identity (if verbalized by the patient): Female Spiritual care concerns: No Comments At the time of my signature, I reviewed and agree with the nursing past medical, surgical, social, and family history. There is no relevant family history pertinent to the patient complaint. Exam Narrative: General: Well-developed, obese, in no apparent distress Head: Normocephalic, atraumatic Eyes: Pupils equally round and reactive to light bilaterally, EOM intact, sclera and conjunctive clear, no discharge, lids normal Ears: TMs intact and clear, ear canals clear, no drainage, grossly hearing normal. Nose: Nares patent, clear nasal discharge, mild to moderate inflammation to anterior and posterior turbinates bilaterally right greater than left, no sinus tenderness. Mouth: Oral pharynx without lesions or masses, good dentition, MMM. Postnasal drip, oropharynx red, mild enlargement of tonsils Neck: Supple, trachea midline, mild enlargement of anterior cervical nodes, no thyroid masses or goiter palpable. Cardio: Regular rate and rhythm, s1 and s2 normal, no murmur appreciated. Resp: Clear to auscultation bilaterally, no rhonchi, rales, wheezing or rubs Course Course Emergency Course: Portions of this record may have been created with voice recognition software. Level of Care: Express Care Visit Vital Signs Vital signs: Vital signs reviewed MDM - URI/Sore Throat MDM Narrative Medical decision making narrative: Upon assessment of patient I decided to do a Covid test and a rapid strep swab. She denies any known exposure to either of these. 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 Covid and strep testing are both negative. It appears that she has a upper respiratory infection with postnasal drip upon assessment. Differential Diagnosis Differ
[2022-01-19 14:58] VITALS: BP 132/77; PULSE 89; RESP 16; TEMP 37.1; O2SAT 100
== END 2022-01-19 15:24 | disposition home or self-care (01) ==
PROVIDERS: Emergency Provider Nurse Practitioner Family
DX: J06.9 Acute upper respiratory infection, unspecified (principal); R09.82 Postnasal drip; Z20.822 Contact with and (suspected) exposure to COVID-19; F41.9 Anxiety disorder, unspecified; F32.A Depression, unspecified; N80.9 Endometriosis, unspecified; E66.01 Morbid (severe) obesity due to excess calories; Z68.39 Body mass index [BMI] 39.0-39.9, adult; E28.2 Polycystic ovarian syndrome; Z87.891 Personal history of nicotine dependence
CPT/HCPCS: 87081; 87426; 87880; 99213; C9803; G0463

== ENCOUNTER 2022-02-18 09:20 | Emergency (ER) | payer OTHER, SELFPAY ==
[2022-02-18] VITALS (43 sets, daily range): BP systolic 105–137; BP diastolic 62–100; PULSE 74–114; RESP 15–27; TEMP 36.3; O2SAT 93–100
--- NOTE | ~2022-02-18 | XR_ITS ---
EXAMINATION: XR chest 2V EXAM DATE: 02/18/2022 13:49 INDICATION: Orthostatic, r/o infection. TECHNIQUE: Frontal and lateral projections of the chest obtained and reviewed. There is no prior pastor dy for comparison. Number than nobody FINDINGS: The lungs are clear. There are no pleural effusions. The cardiomediastinal silhouette is within normal limits. There is no pneumothorax suspected. The bones and soft tissues are unremarkab le. IMPRESSION: No acute cardiopulmonary findings. Reviewed, dictated and finalized at location A.
--- NOTE | ~2022-02-18 | CT_ITS ---
EXAMINATION: CT brain wo con DATE: 02/18/2022 13:41 INDICATION: Dizziness. Syncope. TECHNIQUE: Computed tomography (CT) of the head was performed without intravenous contrast. The mA wa s adjusted according to patient size. Iterative reconstruction technique was employed. The dose-lengt h product was 605.33 mGy-cm. COMPARISON: None FINDINGS: There is no intracranial hemorrhage, acute infarction, or abnormal intracranial mass lesion . The ventricles are normal in size. The paranasal sinuses are clear. The orbits are normal. The mast oid air cells are normal. IMPRESSION: 1. Normal brain. Reviewed, dictated and finalized at location A. IMPRESSION: 1. Normal brain.
--- NOTE | 2022-02-18 09:34 | ED.DIZZY ---
HPI - Dizziness General Chief Complaint: Dizziness Stated Complaint: dizzy, numb Time Seen by Provider: 02/18/22 09:24 Source: patient Mode of arrival: ambulatory Limitations: no limitations History of Present Illness HPI Narrative: Patient 32-year-old female who presents the ED with report of dizziness. Patient reports having fairly constant dizziness for the past several weeks. She is currently weaning off of her sertraline to Abilify and thought the dizziness was due to this. She describes the dizziness as a lightheadedness but also that things are moving. She has not tried anything for symptoms. She has not seen anyone for this. Over the past couple days, she has had increased episodes of dizziness and has felt faint. She has not passed out. No headache. No vision changes. No focal weakness, confusion, dysarthria, dysphagia, trouble ambulating. She does mention the dizziness is not severe. No Hx of vertigo. No tinnitus, otalgia, N/V. Related Data Home Medications Medication Instructions Recorded Confirmed bupropion HCl mg PO 01/19/22 02/09/22 hydroxyzine HCl 01/19/22 02/09/22 aripiprazole 2 mg tablet 2 mg PO DAILY 02/09/22 02/09/22 lamotrigine 100 mg tablet 100 mg PO DAILY 02/09/22 02/09/22 Allergies Allergy/AdvReac Type Severity Reaction Status Date / Time latex Allergy Severe Difficulty Verified 02/18/22 11:02 Breathing/Skin irritation adhesive AdvReac Mild Redness of Verified 02/18/22 11:02 Skin Review of Systems Review of Systems: CONSTITUTIONAL: Denies fever, chills, or sweats. EYES: Denies visual changes. ENT: Denies dysphagia, tinnitus, or otalgia. CARDIOVASCULAR: Denies chest pain. RESPIRATORY: Denies dyspnea. GASTROINTESTINAL: Denies nausea, vomiting. NEUROLOGIC: Reports dizziness/lightheadedness. Denies syncope, confusion, dysarthria, headache, or weakness. All systems reviewed & are unremarkable except as noted in HPI and below PMFSH Past Medical History Medical History Allergies Anxiety Depression Endometriosis Morbid obesity PCOS (polycystic ovarian syndrome) Surgical History Surgical History H/O: hysterectomy History of laparotomy Social History Social History Smoking packs per day: 1 Smoking cigarettes per day: 20.0 Years smoked: 7 Smoking pack-years: 7.00 Smoking status: Former smoker Tobacco type: cigarettes Smoking end date: 11/13/12 Alcohol intake: current Drinks per week: 1 Substance use: never Substance use type: does not use Gender identity (if verbalized by the patient): Female Spiritual care concerns: No Exam Narrative: GENERAL: Well appearing, well-nourished, non-toxic, in no acute distress. HEAD: Normocephalic, atraumatic. EYES: PERRL/EOMI, conjunctivae clear bilaterally. No nystagmus. EARS:TMS clear, with good light reflex. No erythema or bulging. NECK: Supple. No adenopathy, no masses. RESPIRATORY: Airway patent, respirations nonlabored. Clear to auscultation bilaterally, no rales, rhonchi, wheezing. CARDIOVASCULAR: Regular rate and rhythm without murmurs, rubs, or gallops. Peripheral pulses 2+ and equal bilaterally. MUSCULOSKELETAL: Moves all extremities. Strength/ROM intact without gross deformities or TTP. SKIN: Warm, dry, normal color. No rashes. NEURO: A&O X3. Speech clear. Follows commands. CN II-XII intact. Sensation grossly intact. Steady gait. No ataxic movements. Strength 5/5 in upper and lower extremities bilaterally. PSYCHIATRIC: Appropriate mood and affect. Normal interaction. Course Vital Signs Vital signs: Vital Signs Pulse Rate 78 02/18/22 09:28 Respiratory Rate 25 H 02/18/22 09:28 Pulse Oximetry 100 02/18/22 09:28 Temperature 97.4 F L 02/18/22 09:52 Pulse Rate 98 02/18/22 16:15 Respiratory Rate 16 02/18/22 16:15
--- NOTE | 2022-02-18 10:00 | ECG_ITS ---
Measurements Intervals [place] Rate: 68 P: 27 DE: 170 QRS: 24 QRSD: 88 T: 15 QT: 385 QTc: 411 Interpretive Statements SINUS RHYTHM WITH OCCASIONAL VENTRICULAR PREMATURE COMPLEXES OTHERWISE UNREMARKABLE ECG NO PREVIOUS ECG AVAILABLE FOR COMPARISON Electronically Signed On 02-18-2022 11:20:54 CDT by Homero Richardson M.D.
[2022-02-18] MEDS: SODIUM CHLORIDE 0.9% IV 1,000 ML 999 ML IV CONT ×3 (10:17→14:40)
[2022-02-18] MEDS: MECLIZINE HCL 25 MG TABLET PO (10:18)
[2022-02-18 10:19] LABS: Basophils Absolute Auto 0.1 K/mm3 (0.0-0.1); Basophils Percent Auto 0.6 % (0.2-1.2); Eosinophils Absolute Auto 0.2 K/mm3 (0-0.3); Eosinophils Percent Auto 2.4 % (0-4.4); Hematocrit 43.5 % (37.0-47.0); Hemoglobin 14.2 g/dL (12.0-15.0); Immature Granulocyte Absolute 0.01 K/mm3 (0.00-0.031); Immature Granulocyte Percent A 0.1 % (0-0.5); Lymphocytes Absolute Auto 2.24 K/mm3 (0.9-3.2); Lymphocytes Percent Auto 27.1 % (18.3-44.2); Mean Corpuscular HGB Conc 32.6 g/dl (32-36); Mean Corpuscular Hemoglobin 31.1 pg (26-34); Mean Corpuscular Volume 95.4 fl (80-100); Mean Platelet Volume 10.1 fl (7.4-10.4); Monocytes Absolute Auto 0.5 K/mm3 (0.1-0.6); Monocytes Percent Auto 6.4 % (2.6-8.5); Neutrophils Absolute Auto 5.2 K/mm3 (1.3-6.7); Neutrophils Percent Auto 63.4 % (45.5-73.1); Platelet Count Result 272 k/mm3 (150-375); Red Blood Count 4.56 M/mm3 (4.2-5.4); Red Cell Distribution Width 12.5 % (11.5-14.5); White Blood Count 8.3 K/mm3 (4.5-10.0)
[2022-02-18 10:30] LABS: Alanine Aminotransferase 19 U/L (4-35); Albumin Level 4.7 g/dL (3.5-5.1); Alkaline Phosphatase 96 U/L (38-126); Anion Gap 9 mmol/L (8-16); Aspartate Amino Transferase 28 U/L (14-36); Bilirubin,Total 0.6 mg/dL (0.2-1.3); Blood Urea Nitrogen 10 mg/dL (7-17); Calcium 8.9 mg/dL (8.4-10.2); Carbon Dioxide 26 mmol/L (22-30); Chloride 105 mmol/L (98-107); Estimated CRCL calculation 105 ml/min; Estimated Glomerular Filt Rate > 60; Glucose 98 mg/dL (65-110); Potassium 4.2 mmol/L (3.4-5.0); Sodium 140 mmol/L (137-145)
[2022-02-18 14:10] LABS: D Dimer 0.46 ug/mL (<0.48)
[2022-02-18 14:12] LABS: Add Urine Microscopic? YES; Appearance Urine Clear (Clear); Bilirubin Urine Negative (Negative); Blood Urine 1+ (Negative); Color Urine Yellow (Yellow); Glucose Urine UA Negative (Negative); Ketones Urine 1+ mg/dL (Negative); Leukocyte Esterase Ur Negative LEU/UL (Negative); Nitrate Urine Negative (Negative); Protein Urine Negative (Negative); Specific Grav Ur 1.013 (1.001-1.035); Squamous Epithelial Cell Urine Occasional /hpf (Few); Urobilinogen Urine Negative mg/dL (<2.0)
== END 2022-02-18 16:33 | disposition home or self-care (01) ==
PROVIDERS: Physician Assistant; Emergency Provider Emergency Medicine; PCP Family Medicine
DX: R42 Dizziness and giddiness (principal); I95.1 Orthostatic hypotension; F41.9 Anxiety disorder, unspecified; F32.A Depression, unspecified; E66.01 Morbid (severe) obesity due to excess calories; Z68.39 Body mass index [BMI] 39.0-39.9, adult; Z87.891 Personal history of nicotine dependence
CPT/HCPCS: 36415; 70450; 71046; 80053; 81001; 81025; 85025; 85380; 93005; 96360; 96361; 99284; A9270; J7030

== ENCOUNTER 2022-03-10 11:07 | Outpatient (CLI) | payer OTHER, SELFPAY ==
--- NOTE | 2022-03-14 16:59 | WPDHOMESLEEP ---
Sleep Study - Home Unattended Date of Study: 03/10/22 Ordering Provider: Galilea Bradley DO Interpreting Provider: Galilea Bradley DO Home Sleep Study Type: Watch PAT Height: 1.63 m Weight: 104.326 kg Body Mass Index: 39.4 Neck Circumference (inches): 15 Pana: 15 Reason for Sleep Study Difficulty falling asleep and staying asleep Sleep History The patient is a 32-year-old female with depression, anxiety, bipolar disorder, seasonal allergies, endometriosis and history of tobacco abuse that had a sleep study ordered for evaluation of sleep apnea. 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 She occasionally awakens from sleep short of breath. She denies awakening at night with heartburn, belching or cough. She occasionally snores loud enough that others complain. She frequently has trouble sleeping when she has a cold. He occasionally wakes up gasping for air throughout the night. She denies having breathing problems at night observed by herself or others. She rarely sweats excessively at night. She denies having heart palpitations or irregular heartbeats during the night. She frequently falls asleep during the day. She rarely falls asleep while driving. She frequently has trouble at school or work due to sleepiness. She denies cataplexy and hypnagogic / hypnopompic hallucinations. She frequently has nightmares and occasionally remembers her dreams. She frequently has thoughts racing through her mind. She constantly feels sad or depressed. She constantly has anxiety. She frequently has muscular tension. She frequently notices parts of her body jerk. She frequently kicks during the night. He rarely has crawling and aching feelings in her legs and rarely has leg pain during the night. She occasionally grinds her teeth during sleep and occasionally awakens with morning jaw pain. She is occasionally bothered by pain during the day but denies being awakened by pain during the night. He denies waking feeling stiff in the morning. She rarely wakes with sore achy muscles. She occasionally wakes up with pain in the neck, spine and other joints. She goes to bed around 9:30 p.m. on weekdays and between 10:30 p.m. and 11:00 p.m. on the weekends. Can take her 30 minutes to a few hours to fall asleep. She wakes up 2-3 times throughout the night for unknown reasons. When she awakens, she will lay in bed. If she is up for greater than an hour, she will get up and start cleaning the house. It will take her 1-3 hours to fall back asleep. She wakes up at 5:15 a.m. on the weekdays and 7:00 a.m. on the weekends. He typically gets 3-4 hours of sleep per night. She will stay in bed for 2-10 minutes after waking up in the morning. She currently lives with her partner. She does not consume any caffeinated beverages within 2 hours of bedtime. She does not engage in physical exercise before bedtime. She will read before falling asleep. She will occasionally take a nap in the afternoon or the evening but is not refreshing. She drinks 1-2 caffeinated beverages per day. She will drink 1 alcoholic beverage per day at most. She quit smoking cigarettes 9 years ago. She denies recreational drug use. [facility] Past Medical History Medical History Allergies Anxiety Depression Endometriosis Morbid obesity PCOS (polycystic ovarian syndrome) Surgical History Surgical History H/O: hysterectomy History of laparotomy Social History Social History Smoking packs per day: 1 Smoking cigarettes per day: 20.0 Years smoked: 7 Smoking pack-years: 7.00 Smoking status: Former smoker Tobacco type: cigarettes Smoking end date: 11/13/12 Alcohol intake: current Drinks per week: 1 Substance use: never Substance use type: does not use Gender identity (i
[2022-03-14 17:12] VITALS: BMI 39.4
== END 2022-03-11 09:47 | disposition home or self-care (01) ==
LOC: ANHCSM 11:07
PROVIDERS: PCP Family Medicine; Visit Provider Family Medicine
DX: G47.9 Sleep disorder, unspecified (principal)
CPT/HCPCS: 95800

== ENCOUNTER 2024-11-16 09:31 | Emergency (ER) | payer OTHER, SELFPAY ==
--- NOTE | 2024-11-16 09:33 | ED_ITS ---
HPI - URI/Sore Throat General Chief Complaint: Upper Respiratory Infection Stated Complaint: Sore Throat/Congestion Time Seen by Provider: 11/16/24 09:33 Source: patient Mode of arrival: ambulatory Limitations: no limitations History of Present Illness HPI Narrative: patient is a 34-year-old female who presents with sore throat, congestion and dry cough that started yesterday morning. Denies any fever, chills, nausea vomiting, diarrhea. 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 Related Data Home Medications ?Medication ?Instructions ?Recorded ?Confirmed ?Last Taken ?Type bupropion HCl 300 mg 24 hr tablet, 300 mg PO QAM 03/24/22 03/24/22 Unknown History extended release cariprazine 4.5 mg capsule mg 11/16/24 Unknown History (Vraylar) divalproex 500 mg tablet,extended mg PO 11/16/24 Unknown History release 24 hr doxepin 10 mg capsule mg 11/16/24 Unknown History lurasidone 20 mg tablet mg 11/16/24 Unknown History venlafaxine 150 mg mg PO 11/16/24 Unknown History capsule,extended release 24 hr Allergies Allergy/AdvReac Type Severity Reaction Status Date / Time latex Allergy Severe Difficulty Verified 11/16/24 10:34 Breathing/Skin irritation adhesive AdvReac Mild Redness of Verified 11/16/24 10:34 Skin Review of Systems Review of Systems: All systems reviewed & are unremarkable except as noted in HPI and below Constitutional: Constitutional: Denies body ache(s), Denies chills, Denies fatigue, Denies fever(s), Denies headache(s), Denies malaise and Denies weakness Eyes: Eyes: Denies blurry vision, Denies itchy eyes and Denies loss of vision ENT: Denies otalgia, Denies headache(s), Reports nasal congestion, Denies sinus pain and Reports sore throat Cardiovascular: Cardiovascular: Denies chest pain, Denies irregular heart rhythm and Denies dyspnea Respiratory: Respiratory: Reports cough and Denies dyspnea Gastrointestinal: Gastrointestinal: Denies abdominal pain, Denies diarrhea, Denies nausea and Denies vomiting Musculoskeletal: Musculoskeletal: Denies back pain, Denies myalgias and Denies arthralgias Integumentary/Breasts: Skin/Breast: Denies pruritus and Denies rash Neurologic: Denies headache(s), Denies loss of vision and Denies weakness Psychiatric: Psychiatric: Reports no additional psychiatric complaints Endocrine: Endocrine: Denies fatigue Allergic/Immunologic: Allergic/Immunologic: Denies itchy eyes PMFSH Past Medical History Medical History Allergies PCOS (polycystic ovarian syndrome) Endometriosis Anxiety Morbid obesity Depression Surgical History Surgical History History of laparotomy H/O: hysterectomy Social History Social History Smoking packs per day: 1 Smoking cigarettes per day: 20.0 Years smoked: 7 Smoking pack-years: 7.00 Tobacco type: cigarettes Smoking end date: 11/13/12 Alcohol intake: current Drinks per week: 1 Substance use: never Substance use type: does not use Living arrangements: with family Gender identity (if verbalized by the patient): Female Spiritual care concerns: No Comments At time of signature, agree with nursing past medical, surgical, social and family history. There is no relevant family history pertinent to the presenting complaint. Exam Const: General: cooperative, healthy appearing, comfortable, no acute distress and well nourished Nutritional Appearance: well nourished Orientation/consciousness: patient oriented x3 Limitations: no limitations HENMT: Head: normal to inspection, normocephalic and atraumatic Ears: hearing grossly normal bilaterally, external ears normal, TM's normal bilaterally, EAC's normal and no periauricular adenopathy Face/Nose/Sinus: Normal external nose present, Abnormal mucous membranes and turbinates present erythematous bilateral and diffuse, normal facial exam, sinuses nontender and face symmetric Face and sinus: normal facial exam, sinuses nontender and face symmetric Mouth: Yes Normal oral and palatal mucosa present, Yes lip normal, Yes tongue normal, Yes Normal salivary glands and ducts present, Yes oropharynx normal and Yes moist mucous membranes Teeth and gingiva: dentition normal Throat: posterior oropharynx normal, tonsils normal, uvula midline and postnasal drainage Eyes: General: appearance normal, both eyes and all related structures Alignment and Position: alignment normal and position normal Periorbital: periorbital findings normal Eyelids: eyelids normal Pupils: Equal, round and reactive pupils present Neck: Neck: normal visual inspection, full ROM, no lymphadenopathy and supple Chest: Chest palpation & inspection: normal inspection of the chest and normal palpation of entire chest wall Resp: Effort & Inspection: normal respiratory effort and able to speak in complete sentences Auscultation: clear to auscultation bilaterally, no crackles, no rales, no rhonchi and no wheezes Cardio: Rate: regular rate Rhythm: regular rhythm Heart sounds: S1 normal heart sound present and S2 normal heart sound present GI: Inspection: normal to inspection Skin: General skin exam: normal color and no rashes or lesions noted Neuro: General: patient oriented x3 and moves all extremities Cranial nerves: Yes Equal, round and reactive pupils present Speech: normal speech Gait exam (Neuro): Normal gait present Extrem: General: normal to inspection, full ROM and no edema Psych: Appearance: grossly normal and well kempt Mental Status: mental status grossly normal Speech and movement: Normal speech and movement present Affect: normal affect Attitude: cooperative Thought process: Normal thought process present Course Course Emergency Course: Discharge instructions reviewed with patient, as well as provided in writing per nursing staff. The instructions also include specific and strict return/GO TO THE ER as well as f/u information. All questions have been answered, and the patient deny any further questions with discharge and discharge plan. Portions of this record may have been created with voice recognition software Level of Care: Express Care Visit Vital Signs Vital signs: Vital Signs Temperature 36.4 C 11/16/24 10:18 Pulse Rate 85 11/16/24 10:18 Respiratory Rate 16 11/16/24 10:18 Blood Pressure 108/90 11/16/24 10:18 Pulse Oximetry 100 11/16/24 10:18 Temperature 36.4 C 11/16/24 10:18 Pulse Rate 85 11/16/24 10:18 Respiratory Rate 16 11/16/24 10:18 Blood Pressure 108/90 11/16/24 10:18 Pulse Oximetry 100 11/16/24 10:18 Reviewed MDM - URI/Sore Throat MDM Narrative Medical decision making narrative: Pt well hydrated appearing, in no respiratory distress, hemodynamically stable. Recommend supportive care. The patient is stable at time of discharge the clinical impression was discussed and the patient was given the opportunity to ask questions, which were addressed as completely as possible given the information available at present. Anticipatory guidance and return to care precautions were discussed and the importance of primary care follow-up was stressed and encouraged. The patient voiced understanding of the plan, indications to return, and the need for follow-up. Differential diagnosis considered: [place] virus, strep pharyngitis, allergic rhinitis, upper respiratory tract infection, sinusitis, rhinosinusitis, nasopharyngitis. viral pharyngitis, otitis media, otitis externa, otitis effusion, foreign body, cerumen impaction, viral syndrome, and influenza.? Exam findings show no acute concerns or changes; patient is non-toxic appearing and is in no distress.? Patient is appropriate for outpatient treatment and follow- up.? Medical Records Attestation: I reviewed the patient's medical records. Lab Data Attestation: I reviewed the patient's lab results. Labs: Lab Results 11/16/24 Range/Units 10:33 POC Grp A Strep Screen Negative (Negative) Discharge Plan Discharge Clinical Impression: Upper respiratory infection Qualifiers: URI type: unspecified viral URI Qualified Code(s): J06.9 - Acute upper respiratory infection, unspecified Patient Disposition: Home, Self-Care Condition: Stable Instructions: Upper Respiratory Infection (ED) Additional Instructions: Your rapid strep swab was negative today at [facility]. A throat culture will be sent to the laboratory for further testing. If the test is positive, you will receive a phone call within 48 hours and an appropriate antibiotic will be initiated at that time. Your symptoms are likely due to a viral illness, which is not treated with antibiotics. Viral symptoms can be present for up to a few weeks. -Alternate Tylenol and Motrin per package directions for fever or pain. -Antihistamine medication such as Benadryl/Zyrtec at night and Claritin/Carol during the day can help improve symptoms. -Use Flonase twice a day for 5 days then daily to help reduce the inflammation and dry up your sinuses. -You can also use Sudafed behind the pharmacy counter(12 or 24 hour). Be sure to drink plenty of water with these medications at least 8 ounces with every dose and it is important to drink 8 to 10 glasses of water per day. Water is a natural decongestant -Eat and drink things that are easy to swallow, like tea or soup, or popsicles. -Oral rinses such as: Salt water gargles and/or may use topical anesthetic (eg. Chloraseptic spray) or lozenges to relieve dryness or throat pain). -Frequent hand washing or hand [employer] is one of the best ways to prevent spread of infection. -Using a vaporizer or humidifier at night will also help thin secretions and help with coughing up phlegm. -Follow up with primary care provider in 3-5 days if condition is not improving - For new or worsening symptoms go directly to the nearest ER Patient Language: Citizen [place] Prescriptions: New fluticasone propionate [Flonase Allergy Relief] 50 mcg/actuation spray,suspension 1 spray intranasal DAILY Qty: 16 0RF Rx Instructions: administer into each nostril loratadine 10 mg tablet 10 mg PO DAILY Qty: 30 0RF No Action venlafaxine 150 mg capsule,extended release 24hr PO doxepin 10 mg capsule divalproex 500 mg tablet extended release 24 hr PO lurasidone 20 mg tablet Vraylar 4.5 mg capsule bupropion HCl 300 mg tablet extended release 24 hr 300 mg PO QAM Follow-up/Referrals: Georges Klein MD [Physician] - 3 Days ( establish care) UNKNOWN,DOCTOR [Primary Care Provider] - Stand Alone Forms: Work/School Release IP Time of Disposition: 10:49
[2024-11-16 10:18] VITALS: BP 108/90; PULSE 85; RESP 16; TEMP 36.4; O2SAT 100
[2024-11-16 10:34] LABS: EDSTREPNEGPOS1 Negative (Negative)
== END 2024-11-16 10:51 | disposition home or self-care (01) ==
PROVIDERS: Emergency Provider Nurse Practitioner Family
DX: J06.9 Acute upper respiratory infection, unspecified (principal); F17.210 Nicotine dependence, cigarettes, uncomplicated; Z79.899 Other long term (current) drug therapy
CPT/HCPCS: 87081; 87880; 99213; G0463